=== PATIENT | female | born 1980 | race Two or more races ===

== ENCOUNTER 2020-08-06 10:23 | Emergency (ER) | payer SELFPAY ==
[~2020-08-06] VITALS: Ht 160 cm; Wt 59.0 kg
--- NOTE | 2020-08-06 11:02 | NUR ---
DR WEST W/ PT FOR EVALUATION.
[2020-08-06] MEDS ORDERED: CEFTRIAXONE 500 MG VIAL IM ONE (11:15)
[2020-08-06] MEDS ORDERED: AZITHROMYCIN 250 MG TABLET PO ONE (11:15)
[2020-08-06] MEDS ORDERED: AZITHROMYCIN 250 MG TABLET ONE (11:18)
[2020-08-06] MEDS ORDERED: CEFTRIAXONE 500 MG VIAL ONE (11:19)
--- NOTE | 2020-08-06 11:24 | NUR ---
PT MEDICATED PER MD ORDER. TOLERATED WELL.
[2020-08-06 11:27] VITALS: BP 115/68
[2020-08-06 11:40] LABS: *URINE HCG, QUAL NEG (NEGATIVE)
== END 2020-08-06 11:28 | disposition home or self-care (01) ==
LOC: ER 10:23
DX: Z20.2 Contact with and (suspected) exposure to infections with a predominantly sexual mode of transmission (principal)
CPT/HCPCS: 84703; 96372; 99283; J0696; A4663; Q0144